=== PATIENT | male | born 1935 | race Caucasian/White ===

== ENCOUNTER 2017-03-17 14:48 | Emergency (ER) | payer MEDICARE ==
[~2017-03-17] VITALS: Ht 172.7 cm; Wt 78.0 kg
[2017-03-17] MEDS ORDERED: PLAVIX75 MG PO (15:21)
[2017-03-17] MEDS ORDERED: ONGLYZA2.5 MG PO (15:22)
[2017-03-17] MEDS ORDERED: COZAAR25 MG PO (15:22)
[2017-03-17] MEDS ORDERED: METOPROLOL SUCC50 MG PO (15:22)
[2017-03-17] MEDS ORDERED: OMEPRAZOLE20 MG PO (15:23)
[2017-03-17] MEDS ORDERED: GLIPIZIDE5 MG PO (15:23)
[2017-03-17] MEDS ORDERED: ATORVASTATIN CA80 MG PO (15:23)
[2017-03-17] MEDS ORDERED: GLUCOPHAGE1000 MG PO (15:24)
[2017-03-17] MEDS ORDERED: ISOSORBIDE MONO30 MG PO (15:24)
[2017-03-17] MEDS ORDERED: ASPIR 8181 MG PO (15:24)
[2017-03-17] MEDS ORDERED: LEVOTHYROXINE25 MCG PO (15:24)
--- OUTSIDE RECORDS SUMMARY | 2017-03-17 16:34 | XMS ---
Demographics + + + | Address | [address] | | | [place] [address] | + + + | Preferred Language | Unknown | + + + | Marital Status | Unknown | + + + | Islam Affiliation | Unknown | + + + | Race | Unknown | + + + | Ethnic Group | Unknown | + + + Author + + + | Author | [facility] | + + + | Organization | [facility] | + + + | Address | [address] | | | [place] [address] | + + + | Phone | | + + + Care Team Providers + + + + | Care Kitchen Porter Name | Role | Phone | + + + + Unavailable | Unavailable | + + + + PROBLEMS + + + + + + + + | Type | Condition | ICD9-CM | [id number] | Onset | Condition | SNOMED | | | | Code | Code | Dates | Status | Code | + + + + + + + + | Problem | Type 2 | E11.9 | | | Active | [id number] | | | diabetes | | | | | | | | mellitus | | | | | | | | without | | | | | | | | complicati | | | | | | | | on | | | | | | + + + + + + + + | Problem | Essential | | I10 | | Active | [id number] | | | hypertensi | | | | | | | | on | | | | | | + + + + + + + + | Problem | Acquired | E03.9 | | | Active | [id number] | | | hypothyroi | | | | | | | | dism | | | | | | + + + + + + + + | Assessment | Stage 3 | N18.3 | | 17 October, | Active | [id number] | | | chronic | | | 2016 | | | | | kidney | | | | | | | | disease | | | | | | + + + + + + + + | Assessment | Mixed | | E78.2 | 17 October, | Active | [id number] | | | hyperlipid | | | 2016 | | | | | emia | | | | | | + + + + + + + + | Assessment | Acquired | E03.9 | | 17 October, | Active | [id number] | | | hypothyroi | | | 2016 | | | | | dism | | | | | | + + + + + + + + | Problem | Gastroesop | K21.9 | | | Active | [id number] | | | hageal | | | | | | | | reflux | | | | | | | | disease | | | | | | | | without | | | | | | | | esophagiti | | | | | | | | s | | | | | | + + + + + + + + | Problem | Hypertensi | I11.9 | | | Active | [id number] | | | ve | | | | | | | | arterioscl | | | | | | | | erotic | | | | | | | | cardiovasc | | | | | | | | ular | | | | | | | | disease | | | | | | + + + + + + + + | Problem | Type 2 | | E11.29 | | Active | [id number] | | | diabetes | | | | | | | | mellitus | | | | | | | | with other | | | | | | | | diabetic | | | | | | | | kidney | | | | | | | | complicati | | | | | | | | on | | | | | | + + + + + + + + | Problem | Hyperchole | | E78.0 | | Active | 46579438 | | | sterolemia | | | | | | + + + + + + + + | 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 | | Active | 10511928 | | | (arteriosc | | | | | | | | lerotic | | | | | | | | heart | | | | | | | | disease) | | | | | | + + + + + + + + | 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 | | Active | 25985256 | | | a, | | | | | | | | unspecifie | | | | | | | | d | | | | | | + + + + + + + + | Problem | Anemia, | D64.9 | | | Active | [id number] | | | unspecifie | | | | | | | | d type | | | | | | + + + + + + + + ALLERGIES + + + + +--------+ | Substance | Reaction | Event Type | Date | Status | + + + + +--------+ | lisinopril | cough | Drug Allergy | September, | Active | + + + + +--------+ SOCIAL HISTORY No smoking Hx information available PLAN OF CARE VITAL SIGNS + + + + | Height | 68 in | 2016-10-17 | + + + + | Weight | 178.7 lbs | 2016-10-17 | + + + + | BMI | 27.17 kg/m2 | 2016-10-17 | + + + + | Heart Rate | 95 /min | 2016-10-17 | + + + + | Blood pressure systolic | 114 mm Hg | 2016-10-17 | + + + + | Blood pressure diastolic | 66 mm Hg | 2016-10-17 | + + + + MEDICATIONS + + + + +--------+ + +--------+ | Medicati | Instruct | Dosage | Frequenc | Start | End Date | Duration | Status | | on | ions | | y | Date | | | | + + + + +--------+ + +--------+ | Losartan | Orally | 1 tablet | 24h | | | | Active | | | Once a | | | | | | | | Potassiu | day | | | | | | | | m 25 MG | | | | | | | | + + + + +--------+ + +--------+ | Metoprol | Orally | 1/2 | 24h | | | | Active | | ol | Once a | tablet | | | | | | | Succinat | day | | | | | | | | e 50 MG | | | | | | | | + + + + +--------+ + +--------+ | Amlodipi | Orally | 1 tablet | 24h | | | | Active | | ne | Once a | | | | | | | | Besylate | day | | | | | | | | 10 MG | | | | | | | | + + + + +--------+ + +--------+ | Clopidog | Orally | 1 tablet | 24h | | | | Active | | rel | Once a | | | | | | | | Bisulfat | day | | | | | | | | e 75 MG | | | | | | | | + + + + +--------+ + +--------+ | Saxaglip | Orally | 1 tablet | 24h | | | | Active | | tin HCl | Once a | | | | | | | | 2.5 MG | day | | | | | | | + + + + +--------+ + +--------+ | Levothyr | Orally | 1 tablet | 24h | | | | Active | | oxine | Once a | every | | | | | | | Sodium | day | morning | | | | | | | 25 MCG | | on an | | | | | | | | | empty | | | | | | | | | stomach | | | | | | + + + + +--------+ + +--------+ | Isosorbi | Orally | 1 tablet | 24h | | | | Active | | de | Once a | | | | | | | | Mononitr | day | | | | | | | | ate 30 | | | | | | | | | MG | | | | | | | | + + + + +--------+ + +--------+ | Aspir-81 | Orally | 1 tablet | 24h | | | | Active | | 81 MG | Once a | | | | | | | | | day | | | | | | | + + + + +--------+ + +--------+ | GlipiZID | Orally | 1 tablet | 12h | | | | Active | | E 5 MG | BID | | | | | | | + + + + +--------+ + +--------+ | Omeprazo | Orally | 1 | 24h | | | | Active | | le 20 MG | Once a | capsule | | | | | | | | day | | | | | | | + + + + +--------+ + +--------+ | Metformi | Orally | 2 | 12h | | | | Active | | n HCl | Twice a | tablets | | | | | | | 500 MG | day | with | | | | | | | | | evening | | | | | | | | | meal | | | | | | + + + + +--------+ + +--------+ | Atorvast | Orally | 1 tablet | 24h | | | | Active | | atin | Once a | | | | | | | | Calcium | day | | | | | | | | 80 MG | | | | | | | | + + + + +--------+ + +--------+ RESULTS No Results PROCEDURES + + + + + | Procedure | Date Ordered | Related Diagnosis | Body Site | + + + + + | Est Level IV | October 17, 2016 | | | | Extended | | | | + + + + + IMMUNIZATIONS No Known Immunizations"
--- OUTSIDE RECORDS SUMMARY | 2017-03-17 16:34 | XMS ---
Demographics + + + | Address | [address] | | | [place] [address] | + + + | Preferred Language | Unknown | + + + | Marital Status | Unknown | + + + | Adventism Affiliation | Unknown | + + + | Race | Unknown | + + + | Ethnic Group | Unknown | + + + Author + + + | Author | [facility] | + + + | Organization | [facility] | + + + | Address | [address] | | | [place] [address] | + + + | Phone | | + + + Care Team Providers + + + + | Care Radiology Technician Name | Role | Phone | + + + + Unavailable | Unavailable | + + + + PROBLEMS +---------+ + + +--------+ + + | Type | Condition | ICD9-CM | [id number] | Onset | Condition | SNOMED | | | | Code | Code | Dates | Status | Code | +---------+ + + +--------+ + + | Problem | Type 2 | E11.9 | | | Active | [id number] | | | diabetes | | | | | | | | mellitus | | | | | | | | without | | | | | | | | complicati | | | | | | | | on | | | | | | +---------+ + + +--------+ + + | Problem | Essential | | I10 | | Active | [id number] | | | hypertensi | | | | | | | | on | | | | | | +---------+ + + +--------+ + + | Problem | Acquired | E03.9 | | | Active | [id number] | | | hypothyroi | | | | | | | | dism | | | | | | +---------+ + + +--------+ + + | Problem | Gastroesop | K21.9 | | | Active | [id number] | | | hageal | | | | | | | | reflux | | | | | | | | disease | | | | | | | | without | | | | | | | | esophagiti | | | | | | | | s | | | | | | +---------+ + + +--------+ + + | Problem | Hypertensi | I11.9 | | | Active | 08481486 | | | ve | | | | | | | | arterioscl | | | | | | | | erotic | | | | | | | | cardiovasc | | | | | | | | ular | | | | | | | | disease | | | | | | +---------+ + + +--------+ + + | Problem | Type 2 | | E11.29 | | Active | 138698580 | | | diabetes | | | [...] on | | | | | | +---------+ + + +--------+ + + | Problem | Hyperchole | | E78.0 | | Active | 79242748 | | | sterolemia | | | | | | +---------+ + + +--------+ + + | 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 | | Active | 91001446 | | | (arteriosc | | | | | | | | lerotic | | | | | | | | heart | | | | | | | | disease) | | | | | | +---------+ + + +--------+ + + | 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
--- OUTSIDE RECORDS SUMMARY | 2017-03-17 16:34 | XMS ---
Demographics + + + | Address | [address] | | | [place] [address] | + + + | Preferred Language | Unknown | + + + | Marital Status | Unknown | + + + | Church Affiliation | Unknown | + + + | Race | Unknown | + + + | Ethnic Group | Unknown | + + + Author + + + | Author | [facility] | + + + | Organization | [facility] | + + + | Address | [address] | | | [place] [address] | + + + | Phone | | + + + Care Team Providers + + + + | Care Stone Sandblaster Name | Role | Phone | + + + + Unavailable | Unavailable | + + + + PROBLEMS +---------+ + + +--------+ + + | Type | Condition | ICD9-CM | [id number] | Onset | Condition | SNOMED | | | | Code | Code | Dates | Status | Code | +---------+ + + +--------+ + + | Problem | Type 2 | E11.9 | | | Active | [id number] | | | diabetes | | | | | | | | mellitus | | | | | | | | without | | | | | | | | complicati | | | | | | | | on | | | | | | +---------+ + + +--------+ + + | Problem | Essential | | I10 | | Active | 44354798 | | | hypertensi | | | | | | | | on | | | | | | +---------+ + + +--------+ + + | Problem | Acquired | E03.9 | | | Active | 430043123 | | | hypothyroi | | | | | | | | dism | | | | | | +---------+ + + +--------+ + + | Problem | Gastroesop | K21.9 | | | Active | 871772841 | | | hageal | | | [...] | I11.9 | | | Active | 65468081 | | | ve | | | [...] | | E11.29 | | Active | 199050875 | | | diabetes | | | [...] | | E78.0 | | Active | 75903648 | | | sterolemia | | | | | | +---------+ + + +--------+ + + | 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 | | Active | 36024020 | | | (arteriosc | | | | | | | | lerotic | | | | | | | | heart | | | | | | | | disease) | | | | | | +---------+ + + +--------+ + + | 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
[2017-03-17] MEDS ORDERED: NORCO 5-325 TA1 EACH PO (16:35)
== END 2017-03-17 16:45 | disposition home or self-care (01) ==
LOC: ED 14:48
DX: M79.662 Pain in left lower leg (principal); E11.9 Type 2 diabetes mellitus without complications; I25.2 Old myocardial infarction; Z95.5 Presence of coronary angioplasty implant and graft; Z79.899 Other long term (current) drug therapy; Z79.84 Long term (current) use of oral hypoglycemic drugs; Z79.82 Long term (current) use of aspirin
CPT/HCPCS: 80048; 85025; 85610; 93971; 99284

== ENCOUNTER 2017-10-30 11:53 | Day surgery (SDC) | payer MEDICARE ==
[~2017-10-30 11:53] MED LIST: ASPIR 8181 MG PO; ATORVASTATIN CA80 MG PO; COZAAR25 MG PO; GLIPIZIDE5 MG PO; GLUCOPHAGE1000 MG PO; ISOSORBIDE MONO30 MG PO; LEVOTHYROXINE25 MCG PO; METOPROLOL SUCC50 MG PO; NORCO 5-325 TA1 EACH PO; OMEPRAZOLE20 MG PO; ONGLYZA2.5 MG PO; PLAVIX75 MG PO
[2017-10-30] MEDS ORDERED: VITAMIN D22000 UNIT PO (12:20)
[2017-10-30] MEDS ORDERED: VITAMIN C1000 M2 PO (12:20)
[2017-10-30] MEDS ORDERED: ZINC50 MG PO (12:20)
[2017-10-30] MEDS ORDERED: IRON18 MG PO (12:20)
[2017-10-30] MEDS ORDERED: SUPER B-50 COM1 EACH PO (12:20)
[2017-10-30] MEDS ORDERED: VITAMIN E100 UNI1 PO (12:21)
[2017-10-30] MEDS ORDERED: FOLIC ACID20 MG PO (12:21)
--- NOTE | 2017-10-30 13:22 | NUR ---
10/30/17 1322 Savannah Clements 1308 PT ARRIVED TO PACU WITH ORAL AIRWAY ON PLACE, O2 MASK ON AT 6L. RESP EVEN AND UNLABORED. PT NONAROUSABLE. 1310 PT COUGHING WITH AIRWAY IN PLACE, PT NONAROUSABLE AND BITING DOWN ON AIRWAY. 1313 PT REACTIVE AND ABLE TO OPEN HIS EYES, ORAL AIRWAY REMOVED. 1318 O2 MASK REMOVED, PT PLACED ON 4L VIA NC. PT ASLEEP OFF AND ON. 1320 MD AT BEDSIDE.
--- NOTE | 2017-10-30 19:49 | OR ---
[facility] [address] [place], [place] [address] Signed DATE OF OPERATION: 10/30/2017 SURGEON: Hermila Kaye MD PREOPERATIVE DIAGNOSIS: Improving anemia, dark stools (iron therapy). POSTOPERATIVE DIAGNOSES: 1. Hiatal hernia without esophagitis. 2. Mild duodenitis. PROCEDURE: Esophagogastroduodenoscopy with biopsy. ANESTHESIA: Intravenous sedation with propofol infusion, Hermila Maciel CRNA. INDICATION: This 82-year-old white man has been on Plavix for quite sometime and is a patient of Dr. Correia and noted to have anemia. With iron therapy, his hematocrit has risen from 26-30.6. Notably, in July 2016, he underwent colonoscopy by tn, which showed only a small hyperplastic polyp. No other lesion to account for anemia. He has had dark stool, though it is not certain if this is related to his iron therapy. He has had no hematemesis and does have some epigastric pain from time to time. He is admitted to undergo upper endoscopy to better characterize the source of his anemia, specifically to assess for ulceration or neoplasm. He understands risks of bleeding, infection, and perforation and wished to proceed. FINDINGS: The esophagus was normal. There was a hiatal hernia. The stomach itself appeared reasonably normal. Certainly, no ulceration or neoplasm. Pylorus was normal. There was mild bulbar 2nd portion duodenal inflammation, but not much and certainly, no ulceration or erosion or any lesion to account for anemia. DESCRIPTION OF PROCEDURE: The patient was brought to the endoscopy suite and given topical Hurricaine spray hypopharyngeal anesthesia, placed in lateral decubitus position. A bite block was placed. He was given intravenous sedation by the elevators inspector with propofol infusional therapy. The Olympus video upper endoscope was passed in the hypopharynx. The vocal cords were normal. Scope was advanced to the esophagus without problem throughout its Electronically Signed By: HERMILA KAYE MD 10/30/17 1949 PATIENT NAME: CATE MALCOLM OPERATIVE REPORT DATE OF : 39 REPORT #: [id number] PHYSICIAN: HERMILA KAYE MD PCP: ROGER CORRIEA DO REPORT IS CONFIDENTIAL AND NOT TO BE RELEASED WITHOUT AUTHORIZATION [facility] [address] [place], [place] [address] Signed length, it was normal. Upon entry to the stomach, excess gastric juices were suctioned free. The rugal folds appeared normal. There was no sign of ulceration or neoplasm. The pylorus was normal scope was passed through into the duodenum. There was no sign of ulceration there, though there was mild bulbar and second portion duodenum inflammation. Certainly, no erosion. Second and third portions were examined as well. Biopsies were taken. The scope was then withdrawn to the antrum. Biopsy was then taken of the antrum for both RASHAD and pathologic testing. CLOtest was negative 20 minutes postprocedure. Retroflexed view confirmed sizable hiatal hernia, but no sign of ulceration. The scope was straightened, withdrawn, and visualization of mucosal esophagus showed it to be normal, and therefore, biopsies were not taken. The scope was removed and the patient was taken to recovery room in good condition. CONCLUSION DIAGNOSES: Duodenitis, but no sign of lesion to account for anemia. PLAN: We will continue with [facility] for the time being. I would like to see him back in 4 weeks at which point, a CBC will be obtained. A repeat colonoscopy would be a consideration, however, he did have a negative scope essentially a year ago. MD PAUL Bhardwaj/KALIL /[id number] cc: Roger Correia DO Copies: ROGER CORREIA DO ~ Electronically Signed By: HERMILA KAYE MD 10/30/17 1949 PATIENT NAME: CATE MALCOLM OPERATIVE REPORT DATE OF : 39 REPORT #: [id number] PHYSICIAN: HERMILA KAYE MD PCP: ROGER CORREIA DO REPORT IS CONFIDENTIAL AND NOT TO BE RELEASED WITHOUT AUTHORIZATION
== END 2017-10-30 13:58 | disposition home or self-care (01) ==
LOC: OPS 11:53 → DS 11:53 → OPS 13:15 → DS 13:15 → OPS 13:58
PROVIDERS: Surgery
PROC: 0DB68ZX Excision of Stomach, Via Natural or Artificial Opening Endoscopic, Diagnostic (ICD-10-PCS; 2017-10-30)
PROC: 0DB98ZX Excision of Duodenum, Via Natural or Artificial Opening Endoscopic, Diagnostic (ICD-10-PCS; principal; 2017-10-30 13:15)
DX: K29.50 Unspecified chronic gastritis without bleeding (principal); K29.80 Duodenitis without bleeding; D64.9 Anemia, unspecified; R19.5 Other fecal abnormalities; K44.9 Diaphragmatic hernia without obstruction or gangrene; E11.9 Type 2 diabetes mellitus without complications; K21.9 Gastro-esophageal reflux disease without esophagitis; E03.9 Hypothyroidism, unspecified; M40.209 Unspecified kyphosis, site unspecified; Z79.02 Long term (current) use of antithrombotics/antiplatelets; Z79.82 Long term (current) use of aspirin; Z79.899 Other long term (current) drug therapy; Z87.891 Personal history of nicotine dependence
CPT/HCPCS: J2704; J7120